=== PATIENT | male | born 1975 | race American Indian/Alaskan Native ===

== ENCOUNTER 2021-03-11 04:54 | Emergency (ER) | payer SELFPAY ==
[2021-03-11] MEDS ORDERED: oxyCODONE /ACETAMINOPHEN 5-325MG TAB PO NR (05:08)
[2021-03-11] MEDS ORDERED: ONDANSETRON 4 MG ODT TAB PO NR (05:08)
[2021-03-11] MEDS ORDERED: IBUPROFEN 600 MG TAB PO NR (05:08)
[2021-03-11 05:09] VITALS: BP 116/56
--- NOTE | 2021-03-11 05:13 | Emergency Department Report ---
ED Fall HPI - General Chief Complaint: Extremity Injury, Lower Stated Complaint: RIGHT LEG AND KNEE PAIN Source: patient Mode of arrival: Ambulatory - History of Present Illness Initial Comments: Patient is a 45-year-old -[place] male with no past medical history presents to the ED with complaint of acute onset persistent severe right knee pain after he tripped and fell down the porch at home on coming out of the house about 1 hour ago. Patient states that he is unable to bear weight on the right leg because of severe right knee pain. Patient denies head or neck injuries, chest pain or shortness of breath, back pain, nausea and vomiting, dizziness, syncope, seizures, change in vision, headache, loss of consciousness or numbness and tingling or weakness of lower extremities bilaterally. MD Complaint: fall, other (Right knee pain) -: Sudden, hour(s) (1) Fall From: standing, other (Fell off the porch when coming out of the house) When Fall Occurred: 1 hour [employer] Fall Witnessed: yes, by family Place Fall Occurred: home Loss of Consciousness: none Prolonged Down Time?: no Symptoms Prior to Fall: none Location: other (Right knee pain) Location - Extremities: Right: Knee (Severe right knee pain) Severity: severe (Severe right knee pain) Severity scale (0 -10): 9 Quality: sharp, aching Context: tripped/slipped Associated Symptoms: denies. denies: headache, neck pain, numbness, weakness, chest paint, shortness of breath, abdominal pain, hematuria, unable to walk, lightheaded, vertigo, confusion - Related Data Previous Rx's Medication Instructions Recorded Last Taken Type HYDROcodone/APAP 5-325 [Clyde 1 each PO Q6HR PRN #12 tablet 03/11/21 Unknown Rx 5/325] Ibuprofen [Motrin] 800 mg PO Q8HR PRN #30 tablet 03/11/21 Unknown Rx Allergies Allergy/AdvReac Type Severity Reaction Status Date / Time No Known Allergies Allergy Verified 03/11/21 05:21 ED Review of Systems ROS: Stated complaint: RIGHT LEG AND KNEE PAIN Other details as noted in HPI Constitutional: denies: chills, fever Eyes: denies: eye pain, eye discharge, vision change ENT: denies: ear pain, throat pain Respiratory: denies: cough, shortness of breath, wheezing Cardiovascular: denies: chest pain, palpitations Endocrine: no symptoms reported Gastrointestinal: denies: abdominal pain, nausea, diarrhea Genitourinary: denies: urgency, dysuria Musculoskeletal: joint swelling (Right knee swelling and pain), arthralgia (Right knee pain). denies: back pain Skin: denies: rash, lesions Neurological: denies: headache, weakness, paresthesias Psychiatric: denies: anxiety, depression Hematological/Lymphatic: denies: easy bleeding, easy bruising ED Past Medical Hx - Medications Home Medications: Home Medications Medication Instructions Recorded Confirmed Last Taken Type HYDROcodone/APAP 5-325 [Clyde 1 each PO Q6HR PRN #12 tablet 03/11/21 Unknown Rx 5/325] Ibuprofen [Motrin] 800 mg PO Q8HR PRN #30 tablet 03/11/21 Unknown Rx ED Physical Exam - General Limitations: No Limitations General appearance: alert, in no apparent distress - Head Head exam: Present: atraumatic, normocephalic, normal inspection - Eye Eye exam: Present: normal appearance, PERRL, EOMI Pupils: Present: normal accommodation - ENT ENT exam: Present: normal exam, normal orophraynx, mucous membranes moist, TM's normal bilaterally, normal external ear exam - Neck Neck exam: Present: normal inspection, full ROM - Respiratory Respiratory exam: Present: normal lung sounds bilaterally. Absent: respiratory distress, wheezes, rhonchi, chest wall tenderness, accessory muscle use, decreased breath sounds - Cardiovascular Cardiovascular Exam: Present: regular rate, normal rhythm, normal heart sounds. Absent: systolic murmur, diastolic murmur, rubs, gallop - GI/Abdominal GI/Abdominal exam: Present: soft, normal bowel sounds. Absent: tenderness, guarding, rebound, hyperactive bowel sounds, hypoactive bowel sounds, organomegaly - Extremities Exam Extremities exam: Present: normal inspection, tenderness (Palpable severe right knee tenderness with limited range of motion due to pain), normal capillary refill, joint swelling (Mild right knee swelling and severe tenderness). Absent: full ROM (Limited range of motion of right knee due to pain), calf tenderness - Back Exam Back exam: Present: normal inspection, full ROM. Absent: tenderness, CVA tenderness (R), CVA tenderness (L), muscle spasm, paraspinal tenderness, vertebral tenderness, rash noted - Neurological Exam Neurological exam: Present: alert, oriented X3, CN II-XII intact, normal gait, reflexes normal - Psychiatric Psychiatric exam: Present: normal affect, normal mood - Skin Skin exam: Present: warm, dry, intact, normal color. Absent: rash ED Course Vital Signs 03/11/21 05:08 Temperature 99.5 F Pulse Rate 90 Respiratory 16 Rate Blood Pressure 116/56 [Left] O2 Sat by Pulse 100 Oximetry ED Medical Decision Making - Radiology Data Radiology results: report reviewed, image reviewed [facility] [address] [place] [address] XRay Report Signed Patient: GLENNY DOMÍNGUEZ JR MR#: [id number] : 1975 Acct:[id number] Age/Sex: 45 / M ADM Date: 03/11/21 Loc: ED Attending Dr: Ordering Physician: KRISTEN JULIAN Date of Service: 03/11/21 Procedure(s): XR knee 3V RT Accession Number(s): [id number] cc: KRISTEN JULIAN Fluoro Time In Minutes: RIGHT KNEE 4 VIEWS 0539 INDICATION: Fall - severe right knee pain COMPARISON: None available. FINDINGS: Bony density is seen overlapping the lateral aspect of the proximal tibia at the junction with the fibular head. I do not clearly see a donor site but a small fracture fragment is possible. This is not well visualized on the lateral view. Possibly this is an old finding however. Clinical attention to this area suggested. No other suspicious areas are seen. No dislocation is noted. Small joint effusion is seen. Signer Name: Tucker Stallworth MD Signed: 03/11/2021 5:54 AM Workstation Name: [id number] Transcribed By: GJ Dictated By: Tucker Stallworth MD Electronically Authenticated By: Tucker Stallworth MD Signed Date/Time: 03/11/21 0554 DD/ 0550 TD/TT: - Medical Decision Making This is a 45-year-old -[place] male with no past medical history presents to the ED with complaint of acute onset persistent severe right knee pain after he tripped and fell down the porch at home on coming out of the house about 1 hour ago. Patient states that he is unable to bear weight on the right leg because of severe right knee pain. In the ED, patient is alert and oriented x3 and is not in any distress. Patient was treated for pain in the ED. Right knee x-ray showed bony density is seen overlapping the lateral aspect of the proximal tibia at the junction with the fibular head. I do not clearly see a donor site but a small fracture fragment is possible. This is not well visualized on the lateral view. Possibly this is an old finding however. Clinical attention to this area suggested. No other suspicious areas are seen. No dislocation is noted. Small joint effusion is seen. Left knee was immobilized with a knee immobilizer and patient given crutches to aid in ambulation. On reevaluation, patient's pain is well controlled medication. Patient was referred to the orthopedic surgeon Dr. Dangelo for follow-up. Patient is advised to contact Dr. Dangelo's office first thing in the morning on Saturday March 13, 2021 to schedule a follow-up appointment. Patient was advised to return to the ED immediately if symptoms get worse. - Differential Diagnosis Knee fracture; knee contusion; knee sprain; muscle strain Critical care attestation.: If time is entered above; I have spent that time in minutes in the direct care of this critically ill patient, excluding procedure time. ED Disposition Clinical Impression: Sprain of right knee Qualifiers: Encounter type: initial encounter Involved ligament of knee: unspecified ligament Qualified Code(s): S83.91XA - Sprain of unspecified site of right knee, initial encounter Contusion of right leg Qualifiers: Encounter type: initial encounter Qualified Code(s): S80.11XA - Contusion of right lower leg, initial encounter Disposition: HOME / SELF CARE / HOMELESS Is pt being admited?: No Does the pt Need Aspirin: No Condition: Stable Instructions: Knee Sprain, Adult, [id number], Contusion, [id number] Additional Instructions: The right knee x-ray showed no obvious fracture or subluxations although there abnormalities noted which may be suspicious for fracture. Therefore observe strictly no weightbearing on the right leg or right knee, use crutches to ambulate, take pain medication as needed with food, follow-up with the orthopedic surgeon Dr. Dangelo for further evaluation. Contact admissions office first thing in the morning on Saturday March 13, 2021 to schedule a follow-up appointment. Return to the ED immediately if symptoms get worse. Prescriptions: Ibuprofen [Motrin] 800 mg PO Q8HR PRN #30 tablet PRN Reason: Pain , Severe (7-10) HYDROcodone/APAP 5-325 [Clyde 5/325] 1 each PO Q6HR PRN #12 tablet PRN Reason: Pain Referrals: YANELI DANGELO MD [Staff Physician] - 2-3 Days (CONTACT DR. DANGELO ON Saturday TO SCHEDULE AN APPOINTMENT FOR FOLLOW UP.) Forms: Work/School Release Form(ED) Time of Disposition: 06:17 Print Language: CITIZEN OF [place]
--- NOTE | 2021-03-11 05:59 | XRay Report ---
RIGHT KNEE 4 VIEWS 0539 INDICATION: Fall - severe right knee pain COMPARISON: None available. FINDINGS: Bony density is seen overlapping the lateral aspect of the proximal tibia at the junction w ith the fibular head. I do not clearly see a donor site but a small fracture fragment is possible. Th is is not well visualized on the lateral view. Possibly this is an old finding however. Clinical atte ntion to this area suggested. No other suspicious areas are seen. No dislocation is noted. Small join t effusion is seen. Signer Name: Tucker Stallworth MD Signed: 03/11/2021 5:54 AM Workstation Name: [id number]
== END 2021-03-11 06:30 | disposition home or self-care (01) ==
LOC: ED 04:54
DX: S83.91XA Sprain of unspecified site of right knee, initial encounter (principal); S80.11XA Contusion of right lower leg, initial encounter; Z79.899 Other long term (current) drug therapy; W18.39XA Other fall on same level, initial encounter; Y93.89 Activity, other specified; Y92.89 Other specified places as the place of occurrence of the external cause; Y99.8 Other external cause status
CPT/HCPCS: 99283; Q0162